=== PATIENT | female | born 1950 | race Caucasian/White ===

== ENCOUNTER 2016-05-05 09:07 | Emergency (ER) | payer MEDICARE, OTHER ==
[2016-05-05 09:17] VITALS: BP 167/105; PULSE 112; RESP 16; TEMP 97.9; O2SAT 98
[2016-05-05] MEDS ORDERED: VITA1000 PO (09:35)
[2016-05-05] MEDS ORDERED: FLUT50SP EACH NARE (09:35)
[2016-05-05] MEDS ORDERED: CYAN1000P IM (09:35)
[2016-05-05] MEDS ORDERED: CETI10 PO (09:35)
[2016-05-05] MEDS ORDERED: SIMV20TA PO (09:35)
[2016-05-05] MEDS ORDERED: GLUC500T4 PO (09:35)
--- NOTE | 2016-05-05 09:38 | PD ---
HPI Chief Complaint: Cardiac Complaint Time Seen by Provider: 09:28 Travel History International Travel<30 days: No Contact w/Intl Traveler<30days: No Traveled to known affect area: No History of Present Illness HPI This is a 66-year-old female who has a history of hypertension and hyperlipidemia who presents to the emergency department having palpitations. She says they've been going on for the past 5 days, intermittent, lasting for several minutes and then subsiding associated with shortness of breath. They wake her up from sleep multiple times tonight. He associated chest pain. She' s never had this before. She did see a hard rock drill operator once who told her that she might have an irregular heartbeat but she never followed up. She denies smoking or illicit drug use. PFSH Past Medical History Asthma: Yes High Cholesterol: Yes Hypertension: Yes Respiratory: Yes (ASTHMA) Influenza Vaccination: Yes ?: Not Past Surgical History Abdominal Surgery: Yes (polyps removed) Other Surgery: Yes (beebee removed from left orbot as a child) Social History Alcohol Use: Yes (1 daily) Tobacco Use: No Substance Use: No Allergies-Medications (Allergen,Severity, Reaction): Coded Allergies: Penicillin (Verified Allergy, Unknown, RASH, 05/05/16) Sulfa (Verified Allergy, Unknown, VOMITNG SPACEY, 05/05/16) Levaquin (Verified Adverse Reaction, Unknown, VOMITING LEG PAIN, 05/05/16) Reported Meds & Prescriptions Reported Meds & Active Scripts Active Reported Glucosamine-Chondroitin 500-400 Mg Tab 1 Tab PO DAILY Cyanocobalamin Inj (Cyanocobalamin) 1,000 Mcg/Ml Inj 1,000 Mcg IM Q30D Vitamin D-1000 (Cholecalciferol) 1,000 Unit Tab 1,000 Units PO DAILY Cetirizine (Cetirizine HCl) 10 Mg Tab 10 Mg PO DAILY Simvastatin 20 Mg Tab 20 Mg PO DAILY Fluticasone Nasal [place] 50 Mcg/Act Naspr 100 Mcg EACH NARE DAILY 50 mcg/spray Review of Systems Except as stated in HPI: all other systems reviewed are Neg Physical Exam Narrative GENERAL:Well appearing, no acute distress SKIN: Warm and dry. HEAD: Atraumatic. Normocephalic. EYES: Pupils equal and round. No injection or drainage. ENT: Moist mucous membranes NECK: Trachea midline. CARDIOVASCULAR: Regular rate and rhythm. No murmur appreciated. RESPIRATORY: Clear to auscultation. Breath sounds equal bilaterally. GASTROINTESTINAL: Abdomen soft, non-tender, nondistended. MUSCULOSKELETAL: No obvious deformities. NEUROLOGICAL: Awake and alert. No obvious cranial nerve deficits. Moving all extremities. PSYCHIATRIC: Appropriate mood and affect; insight and judgment normal. Data Data Last Documented VS Vital Signs Date Time Temp Pulse Resp B/P Pulse Ox O2 Delivery O2 Flow Rate FiO2 05/05/16 09:17 97.9 112 16 167/105 98 Orders Complete Blood Count With Diff (05/05/16 09:36) Comprehensive Metabolic Panel (05/05/16 09:36) ^ Insert Iv (05/05/16 09:36) Magnesium (Mg) (05/05/16 09:36) Troponin I (05/05/16 09:36) Holter Monitor Recording (05/05/16 ) Labs Laboratory Tests Test 05/05/16 05/05/16 09:49 10:08 White Blood Count 10.4 TH/MM3 Red Blood Count 4.70 MIL/MM3 Hemoglobin 14.9 GM/DL Hematocrit 43.4 % Mean Corpuscular Volume 92.2 FL Mean Corpuscular Hemoglobin 31.7 PG Mean Corpuscular Hemoglobin 34.3 % Concent Red Cell Distribution Width 13.0 % Platelet Count 312 TH/MM3 Mean Platelet Volume 7.6 FL Neutrophils (%) (Auto) 70.0 % Lymphocytes (%) (Auto) 22.9 % Monocytes (%) (Auto) 5.4 % Eosinophils (%) (Auto) 0.9 % Basophils (%) (Auto) 0.8 % Neutrophils # (Auto) 7.2 TH/MM3 Lymphocytes # (Auto) 2.4 TH/MM3 Monocytes # (Auto) 0.6 TH/MM3 Eosinophils # (Auto) 0.1 TH/MM3 Basophils # (Auto) 0.1 TH/MM3 CBC Comment DIFF FINAL Differential Comment Sodium Level 137 MEQ/L Potassium Level 3.8 MEQ/L Chloride Level 101 MEQ/L Carbon Dioxide Level 25.1 MEQ/L Anion Gap 11 MEQ/L Blood Urea Nitrogen 16 MG/DL Creatinine 0.87 MG/DL Estimat Glomerular Filtration 65 ML/MIN Rate Random Glucose 109 MG/DL Calcium Level 9.0 MG/DL Magnesium Level 1.8 MG/DL Total Bilirubin 1.2 MG/DL Aspartate Amino Transf 20 U/L (AST/SGOT) Alanine Aminotransferase 30 U/L (ALT/SGPT) Alkaline Phosphatase 65 U/L Troponin I LESS THAN 0.02 NG/ML Total Protein 7.3 GM/DL Albumin 3.9 GM/DL MDM Medical Decision Making Medical Screen Exam Complete: Yes Emergency Medical Condition: Yes Interpretation(s) afebrile, tachycardic, hypertensive no leukocytosis Electrolytes are reassuring Troponin is normal EKG: Sinus tachycardia with some ST flattening in the lateral leads, nonspecific Differential Diagnosis Arrhythmia, electrolyte abnormality, acute coronary syndrome, pulmonary embolism Narrative Course This is a 66-year-old female who presents to the emergency department with palpitations that have been going on for about a week. Her EKG is reassuring with some sinus tachycardia. She did have a record of how high her heart rate was going when these episodes occurred and she said it was only 100-110. I still think it's reasonable given her symptoms to obtain a Holter monitor. A Holter monitor will be placed and the patient will follow up as an outpatient with cardiology. I considered pulmonary embolism but patient has normal oxygen saturation, no chest pain, and did have a long car ride but back in February from [place] to [place] so I this is unlikely. Diagnosis Primary Impression: Palpitations Referrals: [facility] Patient Instructions: General Instructions Additional Instructions: If you develop severe chest pain, shortness of breath, sweating, lightheadedness , dizziness or difficulty breathing return to the emergency department immediately. Follow-up with a hard rock drill operator without fail. Med/Other Pt SpecificInfo: No Change to Meds Disposition: 01 DISCHARGE HOME Condition: Stable Susan Hamm MD May 05, 2016 09:38
[2016-05-05 09:55] LABS: AUTOMATED NEUTROPHIL # 7.2 TH/MM3 (1.8-7.7); BASOPHIL # 0.1 TH/MM3 (0-0.2); BASOPHIL % 0.8 % (0.0-2.0); EOSINOPHIL # 0.1 TH/MM3 (0-0.4); EOSINOPHIL % 0.9 % (0.0-4.0); HEMATOCRIT 43.4 % (35.0-46.0); LYMPH % 22.9 % (9.0-44.0); LYMPHOCYTE # 2.4 TH/MM3 (1.0-4.8); MEAN CELL VOLUME 92.2 FL (80.0-100.0); MEAN CORPUSCULAR HEMOGLOBIN 31.7 PG (27.0-34.0); MEAN CORPUSCULAR HGB CONC 34.3 % (32.0-36.0); MONO % 5.4 % (0.0-8.0); PLATELET COUNT 312 TH/MM3 (150-450); WHITE BLOOD COUNT 10.4 TH/MM3 (4.0-11.0)
[2016-05-05 09:57] LABS: HEMO FLAGS DIFF FINAL
[2016-05-05 10:21] LABS: CHLORIDE 101 MEQ/L (98-107); POTASSIUM 3.8 MEQ/L (3.5-5.1); SODIUM (NA) 137 MEQ/L (136-145)
[2016-05-05 10:24] LABS: ANION GAP 11 MEQ/L (5-15); BICARBONATE 25.1 MEQ/L (21.0-32.0); MAGNESIUM 1.8 MG/DL (1.5-2.5)
[2016-05-05 10:27] LABS: AST (GOT) 20 U/L (15-37); GLOMERULAR FILTRATION RATE 65 ML/MIN (>89)
[2016-05-05 10:29] LABS: TOTAL BILIRUBIN ADULT 1.2 MG/DL (0.2-1.0)
[2016-05-05 10:30] LABS: ALKALINE PHOSPHATASE 65 U/L (45-117); BLOOD UREA NITROGEN 16 MG/DL (7-18)
[2016-05-05 10:31] LABS: ALT (GPT) 30 U/L (10-53)
[2016-05-05 11:26] VITALS: BP 179/90; PULSE 102; RESP 18; O2SAT 97
--- NOTE | 2016-05-07 00:07 | EKG ---
Date Performed: 05/05/2016 Time Performed: 09:28:56 PTAGE: 66 years EKG: Sinus tachycardia Possible left atrial abnormality Lateral ST changes are nonspecific Borde rline ECG NO PREVIOUS TRACING DOCTOR: Brijesh Marti Interpretating Date/Time 05/07/2016 00:06:17
--- NOTE | 2016-05-07 23:53 | HM ---
Date Performed: 05/05/2016 Time Performed: 11:53:00 HOOKUP DATE: 05/05/16 11:53:00 AM Wed ANALYSIS START TIME: 05/05/2016 11:58:00 AM ANALYSIS END TIME: 05/06/2016 11:37:44 AM PATIENT AGE: 66 PATIENT HEIGHT PATIENT WEIGHT DRUG LIST PATIENT DIAGNOSIS TEST NARRATIVE: The patient's average heart rate was 84 BPM. Heart rates greater than 120 B PM were noted 9% of the time. Heart rates less than 50 BPM were noted < 1% of the time. No pause s exceeding 2.0 seconds were noted. 492 ventricular ectopics, which represented < 1% of the total beat count, were noted. The highest ventricular ectopic frequency occurred from 12:00 PM to 01:00 P M Wed. During this time 149 VE(s) occurred. Ventricular ectopics were observed as 488 isolated beat (s) and as 2 couplet(s). No runs were noted. 21 supraventricular ectopics, which represented < 1 % of the total beat count, were noted. The highest supraventricular ectopic frequency occurred from 10:00 PM to 11:00 PM Wed. During this time 3 SVE(s) occurred. Multiple episodes of ST depression (defined as -1.0 mm or more) were noted in channel 1. The maximum depression of -2.7 mm occurred a t 12:46:34 PM Wed. Multiple episodes of ST depression (defined as -1.0 mm or more) were noted in ch marita 2. The maximum depression of -2.2 mm occurred at 02:03:40 PM Wed. Multiple episodes of ST dep ression (defined as -1.0 mm or more) were noted in channel 3. The maximum depression of -2.8 mm occ urred at 12:12:56 PM Wed. TEST INTERPRETATION: Sinus rhythm Sinus tachycardia No ventricular tachycardia observed There is no entry in the diary Signed by : Cheryl Tan
== END 2016-05-05 12:07 | disposition home or self-care (01) ==
LOC: PHED 09:07
DX: R00.2 Palpitations (principal); R06.02 Shortness of breath; R00.0 Tachycardia, unspecified; R94.31 Abnormal electrocardiogram [ECG] [EKG]; I10 Essential (primary) hypertension; E78.00 Pure hypercholesterolemia, unspecified; Z87.09 Personal history of other diseases of the respiratory system
CPT/HCPCS: 80053; 83735; 84484; 85025; 93005; 93225; 93226; 99284